=== PATIENT | female | born 1980 | race Caucasian/White ===

== ENCOUNTER 2018-03-28 17:15 | Outpatient (CLI) | payer MEDICAID, OTHER ==
[~2018-03-28] VITALS: Ht 160 cm; Wt 84.5 kg
[~2018-03-28 17:15] MED LIST: IBUP-1222 PO; ONDA4TAB7 PO; PREN1TAB27 PO; PROM25SU34 RC
[2018-03-28 17:28] VITALS: BP 134/95
[2018-03-28 17:59] LABS: BASOPHILS # (AUTO) 0.15 x10^3/uL (0-0.1); BASOPHILS % (AUTO) 1 % (0-1); EOSINOPHILS # (AUTO) 0.06 x10^3/uL (0-0.4); EOSINOPHILS % (AUTO) 1 % (1-7); LYMPHOCYTES # (AUTO) 2.08 x10^3/uL (1-3.4); LYMPHOCYTES % (AUTO) 19 % (22-44); MD NO; MEAN CORPUSCULAR HEMOGLOBIN 29.1 pg (27.0-34.8); MEAN CORPUSCULAR HGB CONC 33.4 g/dL (32.4-35.8); MEAN CORPUSCULAR VOLUME 87.2 fL (80-100); MEAN PLATELET VOLUME 10.7 fL (7.4-10.4); MONOCYTES # (AUTO) 1.04 x10^3/uL (0.2-0.8); MONOCYTES % (AUTO) 10 % (2-9); NEUTROPHILS # (AUTO) 7.42 x10^3/uL (1.8-6.8); NEUTROPHILS % (AUTO) 69 % (42-75); PLATELET COUNT 176 x10^3/uL (130-400); RED BLOOD COUNT 3.81 x10^6/uL (3.82-5.3); RED CELL DISTRIBUTION WIDTH 13.5 % (9.6-15.2)
[2018-03-28 18:03] LABS: ALANINE AMINOTRANSFERASE 16 U/L (12-78); ALBUMIN 2.3 g/dL (3.4-5.0); ANION GAP 8 mmol/L (5-15); CALCIUM 8.2 mg/dL (8.5-10.1); CHLORIDE 107 mmol/L (98-107); CREATININE 0.58 mg/dL (0.55-1.02)
[2018-03-28 18:06] LABS: ALKALINE PHOSPHATASE 132 U/L (45-117); BILIRUBIN,TOTAL 0.1 mg/dL (0.2-1.0); TOTAL PROTEIN 6.3 g/dL (6.4-8.2)
[2018-03-28 18:08] LABS: BILIRUBIN, DIRECT < 0.1 mg/dL (0.1-0.2)
[2018-03-28 18:18] LABS: MICROSCOPIC INDICATED
[2018-03-31] MEDS ORDERED: ONDA4TAB13 SL (17:11)
== END 2018-03-28 20:15 | disposition home or self-care (01) ==
LOC: LDOP 17:15
PROVIDERS: ATTEND Obstetrics & Gynecology
DX: O13.3 Gestational [pregnancy-induced] hypertension without significant proteinuria, third trimester (principal); Z3A.35 35 weeks gestation of pregnancy
CPT/HCPCS: 36415; 59025; 80053; 81001; 81050; 82248; 82570; 84156; 84550; 85025; 99211; G0463

== ENCOUNTER 2018-04-07 10:33 | Inpatient (IN) | payer MEDICAID ==
[~2018-04-07] VITALS: Ht 160 cm; Wt 89.0 kg
[~2018-04-07 10:33] MED LIST changes: +ONDA4TAB13 SL
[2018-04-07] MEDS ORDERED: METOCLOPRAMIDE 5 MG/ML, 2ML IVPush ONE (12:00)
[2018-04-07] MEDS ORDERED: KETOROLAC 30 MG/1 ML IVPush ONE (12:00)
[2018-04-07] MEDS ORDERED: SODIUM CHLORIDE FLUSH 10ML SYR IVF ONE (12:00)
[2018-04-07] MEDS ORDERED: DIPHENHYDRAMINE 50 MG/ML, 1ML IVPush ONE (12:00)
[2018-04-07] MEDS ORDERED: KETOROLAC 30 MG/1 ML ONE (12:06)
[2018-04-07] MEDS ORDERED: DIPHENHYDRAMINE 50 MG/ML, 1ML ONE (12:06)
[2018-04-07] MEDS ORDERED: METOCLOPRAMIDE 5 MG/ML, 2ML ONE (12:06)
[2018-04-07 12:12] LABS: CULTURE INDICATED? YES; MICROSCOPIC INDICATED
[2018-04-07 12:12] LABS: BASOPHILS # (AUTO) 0.06 x10^3/uL (0-0.1); BASOPHILS % (AUTO) 1 % (0-1); EOSINOPHILS # (AUTO) 0.38 x10^3/uL (0-0.4); EOSINOPHILS % (AUTO) 4 % (1-7); LYMPHOCYTES # (AUTO) 1.78 x10^3/uL (1-3.4); LYMPHOCYTES % (AUTO) 16 % (22-44); MD NO; MEAN CORPUSCULAR HEMOGLOBIN 29.3 pg (27.0-34.8); MEAN CORPUSCULAR HGB CONC 33.3 g/dL (32.4-35.8); MEAN CORPUSCULAR VOLUME 88.1 fL (80-100); MEAN PLATELET VOLUME 9.1 fL (7.4-10.4); MONOCYTES # (AUTO) 0.81 x10^3/uL (0.2-0.8); MONOCYTES % (AUTO) 7 % (2-9); NEUTROPHILS # (AUTO) 7.96 x10^3/uL (1.8-6.8); NEUTROPHILS % (AUTO) 73 % (42-75); PLATELET COUNT 246 x10^3/uL (130-400); RED BLOOD COUNT 3.44 x10^6/uL (3.82-5.3); RED CELL DISTRIBUTION WIDTH 14.5 % (9.6-15.2)
[2018-04-07 12:13] LABS: INTERNATIONAL NORMALIZED RATIO 0.91 (0.93-1.1); PROTHROMBIN TIME 9.4 Seconds (9.6-11.5)
[2018-04-07 12:14] LABS: ALANINE AMINOTRANSFERASE 47 U/L (12-78); ANION GAP 9 mmol/L (5-15); CHLORIDE 108 mmol/L (98-107); CREATININE 0.56 mg/dL (0.55-1.02)
[2018-04-07 12:19] LABS: ALKALINE PHOSPHATASE 102 U/L (45-117); BILIRUBIN,TOTAL 0.2 mg/dL (0.2-1.0); TOTAL PROTEIN 5.9 g/dL (6.4-8.2); TROPONIN I < 0.015 ng/mL (0.000-0.045)
[2018-04-07] MEDS ORDERED: MAGNESIUM SULF. PMX 20GM/500ML 500 ML IV ONE ×2 (14:41→23:16)
[2018-04-07] MEDS ORDERED: MAGNESIUM SULFATE 4 GM in SODIUM CHLORIDE 0.9% 100 ML IV ONE (15:00)
[2018-04-07] MEDS ORDERED: MAGNESIUM SULFATE PMX 4GM/100M 100 ML IV ONE (15:00)
[2018-04-07] MEDS: MAGNESIUM SULF. PMX 20GM/500ML 500 ML IV SCH ×2 (15:14→23:21)
[2018-04-07 19:30] VITALS: BP 127/77
[2018-04-08 03:20] VITALS: BP 138/88
[2018-04-08 05:23] LABS: BASOPHILS # (AUTO) 0.04 x10^3/uL (0-0.1); BASOPHILS % (AUTO) 0 % (0-1); EOSINOPHILS # (AUTO) 0.35 x10^3/uL (0-0.4); EOSINOPHILS % (AUTO) 3 % (1-7); LYMPHOCYTES # (AUTO) 2.36 x10^3/uL (1-3.4); LYMPHOCYTES % (AUTO) 19 % (22-44); MD NO; MEAN CORPUSCULAR HEMOGLOBIN 29.7 pg (27.0-34.8); MEAN CORPUSCULAR HGB CONC 33.7 g/dL (32.4-35.8); MEAN CORPUSCULAR VOLUME 88.3 fL (80-100); MEAN PLATELET VOLUME 8.7 fL (7.4-10.4); MONOCYTES # (AUTO) 1.03 x10^3/uL (0.2-0.8); MONOCYTES % (AUTO) 8 % (2-9); NEUTROPHILS # (AUTO) 8.66 x10^3/uL (1.8-6.8); NEUTROPHILS % (AUTO) 70 % (42-75); PLATELET COUNT 270 x10^3/uL (130-400); RED BLOOD COUNT 3.66 x10^6/uL (3.82-5.3); RED CELL DISTRIBUTION WIDTH 14.3 % (9.6-15.2)
[2018-04-08 05:28] LABS: ALBUMIN 2.1 g/dL (3.4-5.0); ANION GAP 8 mmol/L (5-15); CALCIUM 7.5 mg/dL (8.5-10.1); CHLORIDE 103 mmol/L (98-107)
[2018-04-08 05:31] LABS: ALANINE AMINOTRANSFERASE 71 U/L (12-78); ALKALINE PHOSPHATASE 109 U/L (45-117); BILIRUBIN,TOTAL 0.3 mg/dL (0.2-1.0); CREATININE 0.55 mg/dL (0.55-1.02); TOTAL PROTEIN 6.3 g/dL (6.4-8.2)
[2018-04-08 05:40] LABS: BILIRUBIN, DIRECT < 0.1 mg/dL (0.1-0.2)
[2018-04-08 08:45] VITALS: BP 144/94
[2018-04-08] MEDS ORDERED: DOCUSATE 100 MG CAPSULE ONE ×2 (09:05→19:35)
[2018-04-08] MEDS: DOCUSATE 100 MG CAPSULE PO PRN ×2 (09:06→19:37)
[2018-04-08] MEDS ORDERED: MAGNESIUM SULF. PMX 20GM/500ML 500 ML IV ONE ×2 (10:01→21:10)
[2018-04-08] MEDS: MAGNESIUM SULF. PMX 20GM/500ML 500 ML IV SCH ×2 (10:06→21:12)
[2018-04-08] MEDS: LACTATED RINGERS 1,000 ML IV PRN (10:06)
[2018-04-08] MEDS ORDERED: ACETAMINOPHEN 325 MG TABLET ONE (19:21)
[2018-04-08] MEDS ORDERED: ACETAMINOPHEN 325 MG TABLET PO PRN (19:30)
[2018-04-09] MEDS: LACTATED RINGERS 1,000 ML IV PRN (04:33)
[2018-04-09 07:52] VITALS: BP 151/95
[2018-04-09] MEDS ORDERED: MAGNESIUM SULF. PMX 20GM/500ML 500 ML IV ONE (08:05)
[2018-04-09] MEDS: MAGNESIUM SULF. PMX 20GM/500ML 500 ML IV SCH (08:10)
[2018-04-09] MEDS ORDERED: DOCUSATE 100 MG CAPSULE ONE (10:00)
[2018-04-09] MEDS: DOCUSATE 100 MG CAPSULE PO PRN (10:52)
[2018-04-09 20:00] VITALS: BP 137/87
[2018-04-10 07:40] VITALS: BP_SYST 148; BP_SYST 156; BP_DIAS 104; BP_DIAS 105
[2018-04-10 08:20] VITALS: BP 155/90
[2018-04-10 12:36] VITALS: BP 151/95
== END 2018-04-10 13:38 | disposition home or self-care (01) | DRG 776 ==
LOC: ED 13:54 → EDIP 13:55 → ED 14:02 → LDIP 14:47
PROVIDERS: ADMIT Obstetrics & Gynecology; ATTEND Obstetrics & Gynecology
DX: O11.5 Pre-existing hypertension with pre-eclampsia, complicating the puerperium (principal); F95.2 Tourette's disorder; O99.63 Diseases of the digestive system complicating the puerperium; K59.00 Constipation, unspecified; H53.149 Visual discomfort, unspecified
CPT/HCPCS: 36415; 70450; 71045; 80053; 81001; 82248; 83690; 83735; 83880; 84484; 84550; 85025; 85610; 85730; 87086; 93005; 96374; 96375; J1885; J1200; J2765; J3475; J7120

== ENCOUNTER 2018-04-16 20:15 | Emergency (ER) | payer MEDICAID ==
[~2018-04-16] VITALS: Ht 160 cm; Wt 72.0 kg
[2018-04-16] MEDS ORDERED: SODIUM CHLORIDE FLUSH 10ML SYR IVF ONE (21:00)
[2018-04-16 21:38] LABS: ALANINE AMINOTRANSFERASE 33 U/L (12-78); ALBUMIN 2.6 g/dL (3.4-5.0); ANION GAP 9 mmol/L (5-15); CALCIUM 8.4 mg/dL (8.5-10.1); CHLORIDE 109 mmol/L (98-107); CREATININE 0.67 mg/dL (0.55-1.02)
[2018-04-16 21:43] LABS: ALKALINE PHOSPHATASE 108 U/L (45-117); BILIRUBIN,TOTAL 0.1 mg/dL (0.2-1.0); TOTAL PROTEIN 6.7 g/dL (6.4-8.2)
[2018-04-16 21:44] LABS: BASOPHILS # (AUTO) 0.03 x10^3/uL (0-0.1); BASOPHILS % (AUTO) 0 % (0-1); EOSINOPHILS # (AUTO) 0.13 x10^3/uL (0-0.4); EOSINOPHILS % (AUTO) 1 % (1-7); LYMPHOCYTES # (AUTO) 2.64 x10^3/uL (1-3.4); LYMPHOCYTES % (AUTO) 29 % (22-44); MD NO; MEAN CORPUSCULAR HEMOGLOBIN 28.5 pg (27.0-34.8); MEAN CORPUSCULAR HGB CONC 32.8 g/dL (32.4-35.8); MEAN PLATELET VOLUME 8.8 fL (7.4-10.4); MONOCYTES # (AUTO) 0.75 x10^3/uL (0.2-0.8); MONOCYTES % (AUTO) 8 % (2-9); NEUTROPHILS # (AUTO) 5.45 x10^3/uL (1.8-6.8); NEUTROPHILS % (AUTO) 61 % (42-75); PLATELET COUNT 263 x10^3/uL (130-400); RED BLOOD COUNT 4.42 x10^6/uL (3.82-5.3); RED CELL DISTRIBUTION WIDTH 14.6 % (9.6-15.2)
[2018-04-16 22:02] LABS: CULTURE INDICATED? YES; MICROSCOPIC INDICATED
[2018-04-16 22:39] VITALS: BP 127/79
== END 2018-04-16 22:42 | disposition home or self-care (01) ==
LOC: ED 21:12
DX: R10.13 Epigastric pain (principal); N30.00 Acute cystitis without hematuria; R51 Headache
CPT/HCPCS: 36415; 80053; 81001; 83690; 84703; 85025; 87086; 99284